=== PATIENT | male | born 1960 | race Caucasian/White ===

== ENCOUNTER 2021-04-20 10:42 | Emergency (ER) | payer OTHER, SELFPAY ==
[2021-04-20 10:48] VITALS: BP 158/97; PULSE 52; RESP 15; TEMP 36.5; O2SAT 99; BMI 25.1
--- NOTE | 2021-04-20 11:39 | CTR_ITS ---
PROCEDURE INFORMATION: Exam: CT Head Without Contrast Exam date and time: 04/20/2021 11:39 AM Age: 60 years old Clinical indication: Altered mental status/memory loss; Additional info: Memory issues for past year TECHNIQUE: Imaging protocol: Computed tomography of the head without contrast. Radiation optimization: All CT scans at this facility use at least one of these dose optimization techniques: automated exposure control; mA and/or kV adjustment per patient size (includes targeted exams where dose is matched to clinical indication); or iterative reconstruction. COMPARISON: No relevant prior studies available. RADIATION DOSE METRICS: Total DLP (mGy-cm): 979.82 FINDINGS: Brain: No intracranial hemorrhage, edema or other acute abnormalities are seen in the brain. There is generalized chronic atrophy with prominence of the ventricles and sulci. There is no mass effect or midline shift. Cerebral ventricles: Ventricles are prominent due to chronic atrophy. Paranasal sinuses: Visualized sinuses are unremarkable. No fluid levels. Mastoid air cells: Visualized mastoid air cells are well aerated. Bones/joints: Unremarkable. No acute fracture. Soft tissues: Unremarkable. CT/CT head wo con* [id number] IMPRESSION: 1. Generalized chronic atrophy. 2. No acute abnormality. Radiation Dose CTDIVOL = (mGy): DLP = 979.82 (mGy-cm)
--- NOTE | 2021-04-20 11:41 | W.ED.GENADLT ---
HPI - General Adult General: Chief complaint: General Medical Stated complaint: AMS Time Seen by Provider: 04/20/21 11:01 History of Present Illness: HPI narrative: Patient is a 60-year-old male comes to the ED with worsening memory issues. Patient's son is present in the room. Patient says over the past year he has been having worsening memory and foggy mind. He has been more forgetful over the past year. Son said that just this week his dad misplaced a chain saw somewhere on the property and he can remember where he put it. He denies any recent fall or head traumas. Denies any headache. He says he has no family history of any Alzheimer's, Parkinson's or other type of dementia. Denies any balance issues or dizziness. Associated symptoms: Reports confusion (memory issues); Deny chest pain, dyspnea, headache(s), nausea, rash, palpitations or vomiting Review of Systems Const: Denies: fever(s), chills or fatigue Eyes: Denies: change in vision or eye discomfort ENMT: Denies: throat pain, odynophagia, nasal discharge or nasal congestion Card: Denies: chest pain, palpitations, edema, swelling of feet/ankles, dyspnea on exertion or orthopnea Resp: Denies: dyspnea, productive cough or non-productive cough GI: Denies: abdominal pain, nausea, vomiting, diarrhea, constipation or hematochezia : Denies: flank pain, difficulty urinating, dysuria or hematuria Musc: Denies: neck pain, back pain or extremity swelling Skin/Breast: Denies: rash or new lesions Neuro: Reports: confusion (memory issues); Denies: headache(s), numbness in extremities or weakness in extremities Physical Exam Const: COMMON NORMALS: no acute distress and alert GENERAL APPEARANCE: cooperative and comfortable ORIENTATION/CONSCIOUSNESS: Yes oriented to person and Yes oriented to place HENMT: COMMON NORMALS: normocephalic HEAD & SCALP: normocephalic MOUTH: Normal oral and palatal mucosa present THROAT: posterior oropharynx normal and uvula midline Neck/C-Spine: COMMON NORMALS: supple GENERAL: Yes normal visual inspection Resp: COMMON NORMALS: normal respiratory effort, No retractions, No use of accessory muscles and clear to auscultation bilaterally AUSCULTATION: clear to auscultation bilaterally Cardio: COMMON NORMALS: regular rate, regular rhythm, S1 normal heart sound present, S2 normal heart sound present, No gallops present (Cardio), No clicks present (Cardio), No murmurs present (Cardio) and Peripheral pulses 2+ throughout RATE: regular rate RHYTHM: regular rhythm HEART SOUNDS: S1 normal heart sound present and S2 normal heart sound present PERIPHERAL PULSES: Peripheral pulses 2+ throughout GI: COMMON NORMALS: Normal to inspection, nondistended, normoactive bowel sounds present, Soft to palpation, non-tender and no masses PALPATION: Yes Soft to palpation : COMMON NORMALS: Yes no CVA tenderness BLADDER/KIDNEY EXAM: Yes no CVA tenderness Back/Pelvis: COMMON NORMALS: no CVA tenderness Extremity: COMMON NORMALS: normal to inspection Neuro: COMMON NORMALS: moves all extremities SENSORIUM/ORIENTATION: Yes alert, Yes oriented to person, Yes oriented to place and Yes Orientation impaired (Did not know year or day of week. Did know current president.) COORDINATION/BALANCE: [id number] test normal SPEECH: speech normal GAIT: Yes Normal gait present SENSORY EXAM: Yes extremities (intact) MOTOR EXAM: 5/5 motor strength present throughout and Tremors during motor activity present resting tremor bialteral upper extremity COORDINATION: [id number] test normal Skin: GENERAL SKIN EXAM: dry skin Course Vital Signs: Vital signs: Vital Signs Temperature 97.7 F 04/20/21 10:48 Pulse Rate 52 L 04/20/21 13:59 Respiratory Rate 15 04/20/21 10:48 Blood Pressure 127/84 04/20/21 13:59 Pulse Oximetry 98 04/20/21 13:59 MDM - General Adult MDM Narrative: Medical decision making narrative: Patient is a 60-year-old male comes to the ED with worsening memory issues. Patient's son is present. Over the past year patient has been showing worsening signs of memory issues. Patient does not have a PCP.has not seen a doctor in 10 years. Patient appears in no acute distress or pain has not had any recent head injuries or traumas. Patient is alert and oriented x2 but struggles a little bit with time questions such as day and year. Rest of neuro exam is normal. CT of head showed no acute findings but did show some generalized chronic atrophy. UA was unremarkable. Patient was diagnosed with cognitive changes and I placed an order with case management for patient to be referred to a PCP to establish care. Return to ED precautions given. Patient was discharged and told the disease case manager rn will be contacting the next several days set up an appointment with a PCP. Patient understood and agreed with plan. Lab Data: Attestation: I reviewed the patient's lab results. Labs: Lab Results 04/20/21 Range/Units 13:17 Urine Color Yellow (Yellow) Urine Appearance Clear (CLEAR) Urine pH 6.5 (5-7) Ur Specific Gravit y 1.020 (1.005-1.030) Urine Protein Neg (Negative) Urine Glucose (UA) Norm (Normal) Urine Ketones Negative (Negative) Urine Blood Neg (Negative) Urine Nitrate Negative (Negative) Urine Bilirubin Neg (Negative) Urine Urobilinogen Norm (Negative) mg/dL Ur Leukocyte Hailee ase Negative (Negative) Urine RBC 0-4 H (0-2) /hpf Urine WBC None (0-5) /hpf Ur Squamous Epith Cells 0-4 H (0-5) /hpf Amorphous Sediment Not Reportable Urine Bacteria None (NONE) /hpf Urine Mucus 1+ /hpf Imaging Data^: CT Head: Attestation: I personally reviewed and interpreted this imaging study as follows: Radiologist's impression: [address] [address] [address] Scan Report Signed Patient: Steven Bateman Unit #: [id number] : 1960 Age/Sex: 60 / M ADM Date: 04/20/21 Loc: ER Room/Bed: Attending Dr: Ordering Provider/Ordering MD: David Silva Date of Service: 04/20/21 Procedure(s): CT head wo con* [id number] Accession Number(s): [id number] Report Number: [id number] PROCEDURE INFORMATION: Exam: CT Head Without Contrast Exam date and time: 04/20/2021 11:39 AM Age: 60 years old Clinical indication: Altered mental status/memory loss; Additional info: Memory issues for past year TECHNIQUE: Imaging protocol: Computed tomography of the head without contrast. Radiation optimization: All CT scans at this facility use at least one of these dose optimization techniques: automated exposure control; mA and/or kV adjustment per patient size (includes targeted exams where dose is matched to clinical indication); or iterative reconstruction. COMPARISON: No relevant prior studies available. RADIATION DOSE METRICS: Total DLP (mGy-cm): 979.82 FINDINGS: Brain: No intracranial hemorrhage, edema or other acute abnormalities are seen in the brain. There is generalized chronic atrophy with prominence of the ventricles and sulci. There is no mass effect or midline shift. Cerebral ventricles: Ventricles are prominent due to chronic atrophy. Paranasal sinuses: Visualized sinuses are unremarkable. No fluid levels. Mastoid air cells: Visualized mastoid air cells are well aerated. Bones/joints: Unremarkable. No acute fracture. Soft tissues: Unremarkable. CT/CT head wo con* [id number] IMPRESSION: 1. Generalized chronic atrophy. 2. No acute abnormality. Radiation Dose CTDIVOL = (mGy): DLP = 979.82 (mGy-cm) Dictated By: Mateo Lloyd Signed By: Mateo Lloyd Signed Date/Time: 04/20/21 1250 DD/ 1249 Discharge Plan Discharge Patient Disposition: Home Clinical Impression: Cognitive changes Condition: Stable Prescriptions: No Action multivitamin 1 tab PO DAILY RF: 0 potassium 1 tab PO DAILY RF: 0 Discharge Orders: Discharge ED (Routine); Ordered 04/20/21 Ordered By: David Silva Referrals: Nina Gonzáles FNP [Primary Care Provider] - Discharge Diet: Regular Discharge Activity: Resume usual activity Activity Restrictions/Additional Instructions: Follow-up with medical provider as directed. Case management will be contacting you the next several days set up an appointment with a primary care physician. Continue taking all home medications as prescribed. Return to the ER or your medical provider if condition worsens. Please read and understand discharge instructions. Thank you for choosing [facility] for your healthcare needs today. Please realize this is an emergency room and that we are providing you with a medical screening exam and this may not be complete and all inclusive of all the testing and or work up that you may need to determine your ailment or severity of your illness. It is very important that you follow up as instructed or that you return to the Emergency Department should you have concerns or if your condition changes or worsens in any way. Coding Level of Care Code ED Academic Advisement Director for Keven Fwd Exam Comprehensive
[2021-04-20 13:35] LABS: Bilirubin Urine Neg (Negative); Blood Urine Neg (Negative); Glucose Urine UA Norm (Normal); Ketones Urine Negative (Negative); Leukocyte Esterase Urine Negative (Negative); Nitrate Urine Negative (Negative); Protein Urine Neg (Negative); Urine Appearance Clear (CLEAR); Urine Color Yellow (Yellow); Urobilinogen Urine Norm (Negative); pH Urine 6.5 (5-7)
[2021-04-20 13:36] LABS: Add Urine Culture? No; Mucus Urine 1+ /hpf; RBC Urine 0-4 /hpf (0-2); Squamous Epithelial Cell Urine 0-4 /hpf (0-5)
[2021-04-20 13:59] VITALS: BP 127/84; PULSE 52; O2SAT 98
--- NOTE | 2021-04-24 11:22 | DCPLANNER ---
Addendum entered by Keesha Whitaker 04/25/21 15:30: Patients son called supervisor case loading asking supervisor case loading to get patient established with a primary care physician. beverage manager called [facility], spoke with Ann, gave clinic patients information. A follow up appointment was scheduled for Thursday, May 17, 2021 at 9:[address] Nolen. beverage manager called patients son, and gave him the appointment information. Patients son asked supervisor case loading if supervisor case loading could refer patient to Dr. Wilkins office, supervisor case loading emailed patients information to the neurology clinic. Clinic will call patient with appointment information. Original Note: beverage manager had message to speak with patient about getting established with a primary care physician. beverage manager called phone number [phone], unable to speak with patient at this time, a voicemail was left for patient to return nurse case manager phone call.
--- NOTE | 2021-05-03 14:32 | DCPLANNER ---
Patient has a follow up appointment scheduled for , May 30, 2021 at 11:[address] Zarate. Clinic will call patient with appointment information.
--- NOTE | 2021-06-07 14:05 | DCPLANNER ---
Patient had a follow up appointment scheduled for 05.17.[address] Nolen at [facility] - patient did attend. Patient had a follow up appointment scheduled for 05.30.[address] Zarate - patient did attend appointment.
== END 2021-04-20 14:04 | disposition home or self-care (01) ==
PROVIDERS: Emergency Provider Physician Assistant; PCP Nurse Practitioner
DX: R41.89 Other symptoms and signs involving cognitive functions and awareness (principal)
CPT/HCPCS: 70450; 81001; 99283

== ENCOUNTER → 2021-05-17 11:36 | Outpatient (BNVA) | payer OTHER, SELFPAY | PROVIDERS: Visit Provider Family Medicine Adult Medicine | DX: Z00.00 Encounter for general adult medical examination without abnormal findings; R47.89 Other speech disturbances; H53.2 Diplopia; Z86.39 Personal history of other endocrine, nutritional and metabolic disease; E66.9 Obesity, unspecified | CPT/HCPCS: 80053; 83036; 84443; 85025; 85651; 86140; G0103 ==

== ENCOUNTER → 2021-05-30 10:27 | Outpatient (BNVA) | payer OTHER, SELFPAY | PROVIDERS: PCP Family Medicine Adult Medicine; Visit Provider Specialist | DX: G30.9 Alzheimer's disease, unspecified (principal); F02.80 Dementia in other diseases classified elsewhere, unspecified severity, without behavioral disturbance, psychotic disturbance, mood disturbance, and anxiety; R20.0 Anesthesia of skin; R20.2 Paresthesia of skin | CPT/HCPCS: 96116; 99205 ==

== ENCOUNTER 2021-06-27 16:17 | Outpatient (CLI) | payer OTHER, SELFPAY ==
[2021-06-27 17:36] LABS: Vitamin B12 419 pg/mL (232-1245)
== END 2021-06-27 16:18 | disposition home or self-care (01) ==
LOC: LAB 16:21
PROVIDERS: PCP Family Medicine Adult Medicine; Visit Provider Specialist
DX: R20.0 Anesthesia of skin (principal); R20.2 Paresthesia of skin; R41.3 Other amnesia
CPT/HCPCS: 36415; 82607

== ENCOUNTER → 2021-08-22 14:45 | Outpatient (BNVA) | payer OTHER, SELFPAY | PROVIDERS: PCP Family Medicine Adult Medicine; Visit Provider Specialist | DX: G30.9 Alzheimer's disease, unspecified (principal); F02.80 Dementia in other diseases classified elsewhere, unspecified severity, without behavioral disturbance, psychotic disturbance, mood disturbance, and anxiety | CPT/HCPCS: 96116; 99214 ==

== ENCOUNTER 2021-10-10 11:46 | Emergency (ER) | payer OTHER, SELFPAY ==
[2021-10-10 11:54] VITALS: BP 181/113; PULSE 60; RESP 16; TEMP 36.3; O2SAT 99; BMI 31.0
--- NOTE | 2021-10-10 11:55 | ED_ITS ---
HPI - Weakness General: Chief complaint: General Medical Stated complaint: WEAKNESS Time Seen by Provider: 10/10/21 11:55 History of Present Illness: HPI Narrative: Mr. Bateman is a 60-year-old gentleman with history of hypertension and diabetes and unfortunate history of rather severe Alzheimer's disease who presents to the emergency department due to unwell feeling. Upon arrival the patient is somewhat ill-appearing however the details of his presentation are unobtainable. Patient does not provide significant meaningful history likely secondary to mental status either baseline or exacerbated. Upon family's arrival supplemental information is that exact time of onset is unknown however this is not patient's baseline. Apparently neighbors found him this morning. Review of Systems General: Reports: ROS unobtainable due to mental status PFSH ED PFSH: Medical History Confusion and disorientation Elevated blood pressure, situational Episode of change in speech History of diabetes mellitus Monocular diplopia of both eyes Obesity (BMI 30.0-34.9) Periodic health assessment, general screening, adult Surgical History History of tonsillectomy and adenoidectomy Hx of hernia repair Hx of laparoscopic gastric banding Family History Mother Diabetes Other Hypertension Social History Alcohol intake: current Alcohol intake frequency: holidays/special occasions only Marital status: Number of children: 3 Number of grandchildren: 4 Current occupational status: employed History of recent travel: No Physical Exam Narrative: EXAM NARRATIVE: GENERAL/CONSTITUTIONAL -ill-appearing. Eyes - PERRL, no conjunctival injection ENMT - Atraumatic external nose and ears. Moist mucous membranes NECK - supple. trachea midline CARDIOVASCULAR - regular rate and rhythm. RESPIRATORY -clear to auscultation bilaterally. ABDOMEN/GI - Nontender/Nondistended. MSK - Extremities without obvious deformity or tenderness to palpation SKIN - Warm, Dry NEURO - alert but disoriented. Patient has challenges performing tasks associated with detailed neurologic exam. There is no obvious significant asymmetry or abnormal findings however exam is very limited. Course ED course: - Patient was seen and evaluated by me at bedside - Patient placed on cardiac monitors, IV access obtained - Initial evaluation notable for exam as above -Fluids ordered - Labs notable for normal hematologic panel. Metabolic panel without acute electrolyte derangement, mild evidence of dehydration. Urinalysis not concerning for urinary tract infection. Toxic ingestion labs negative. - Imaging notable for negative head CT and chest x-ray. - Upon serial reexamination after treatment the patient was markedly improved. He was completely alert and oriented. He provides good history regarding this morning. He reports that he just started to feel generally unwell and weak all over. There is no focality with this. He feels improved at this time. - Discussed with neurology, no additional imaging needed at this time - Based on patient history, evaluation, labs, and imaging as interpreted the most likely cause of the patient's condition is unclear alteration in mental status which has subsequently resolved - The results of ED evaluation were discussed with the patient including prescriptions and/or symptomatic cares (if applicable) including appropriate and responsible use, followup plan, and return precautions. The patient verbalized understanding and felt safe for discharge. - Patient discharged in satisfactory condition. Vital Signs: Vital signs: Vital Signs Temperature 97.4 F L 10/10/21 11:54 Pulse Rate 54 L 10/10/21 15:30 Respiratory Rate 19 H 10/10/21 15:30 Blood Pressure 141/82 10/10/21 15:30 Pulse Oximetry 98 10/10/21 15:30 MDM - Weakness Medical Records: Attestation: I reviewed the patient's medical records. Lab Data: Attestation: I reviewed the patient's lab results. Labs: Lab Results 10/10/21 10/10/21 10/10/21 11:51 11:51 11:51 WBC 6.6 10^3/uL 10^3/ uL (4.0-10.0) RBC 5.14 10^6/uL 10^6 /uL (4.1-5.3) Hgb 16.0 g/dL g/dL (11.7-16.6) Hct 47.3 % % (42.0-52.0) MCV 92.0 fl fl (80-94) MCH 31.1 pg pg (28.0-34.0) MCHC 33.8 g/dL g/dL (30.0-36.0) RDW 13.2 % % (12.1-15.1) Plt Count 207 10^3/cmm 10^3 /cmm (130-400) MPV 9.6 fL fL (7.4-10.4) Neut % (Auto) 76.9 % % Lymph % (Auto) 15.0 % % [place] % (Auto) 6.6 % % Eos % (Auto) 0.5 % % Baso % (Auto) 0.5 % % Neut # (Auto) 5.05 10^3/uL 10^3 /uL (1.8-7.7) Lymph # (Auto) 1.0 10^3/uL 10^3/ uL (0.8-4.8) [place] # (Auto) 0.4 10^3/uL 10^3/ uL (0.2-0.9) Eos # (Auto) 0.0 10^3/uL 10^3/ uL (0.0-0.8) Baso # (Auto) 0.0 10^3/uL 10^3/ uL (0.0-0.1) Nucleated RBC % (a uto) 0 % % Nucleated RBCs # 0.0 /100WBC /100W BC Sodium 138 mmol/L mmol/L (136-145) Potassium 4.1 mmol/L mmol/L (3.5-5.1) Chloride 102 mmol/L mmol/L (98-107) Carbon Dioxide 21 mmol/L L mmol/ L (22-29) Anion Gap 19.1 H (5-19) BUN 19 mg/dL mg/dL (8-23) Creatinine 0.9 mg/dL mg/dL (0.7-1.2) GFR Calculation 86.1 mL/min L mL/ min (90-130) Glucose 121 mg/dL H mg/dL (65-115) POC Glucose Calculated Osmolal ity 290 mOsm/kg mOsm/ kg (285-295) Calcium 9.0 mg/dL mg/dL (8.5-10.5) Total Bilirubin 0.4 mg/dL mg/dL (0.15-1.2) AST 16 U/L U/L (0-40) ALT 17 U/L U/L (0-41) Alkaline Phosphata se 136 IU/L H IU/L (40-130) Troponin T Baselin e 6 ng/L ng/L (0-15) Troponin T 120 Min [place] Delta Troponin T Total Protein 6.9 g/dL g/dL (6.6-8.7) Albumin 4.4 g/dL g/dL (3.5-5.2) Globulin 2.5 g/dL g/dL (1.3-4.6) TSH 1.19 uIU/mL uIU/m L (0.27-4.20) Urine Color Urine Appearance Urine pH Ur Specific Gravit y Urine Protein Urine Glucose (UA) Urine Ketones Urine Blood Urine Nitrate Urine Bilirubin Urine Urobilinogen Ur Leukocyte Hailee ase Salicylates < 0.3 mg/dL L mg/ dL (3-10) Urine Opiates Scre en Acetaminophen < 5.0 ug/mL L ug/ mL (10-30) Ur Barbiturates Sc reen Ur Phencyclidine S crn Ur Amphetamines Sc reen U Benzodiazepines Scrn Urine Cocaine Scre en U Marijuana (THC) Screen Ethyl Alcohol < 10 mg/dL mg/dL (0-10) 10/10/21 10/10/21 10/10/21 12:00 12:46 12:46 WBC RBC Hgb Hct MCV MCH MCHC RDW Plt Count MPV Neut % (Auto) Lymph % (Auto) [place] % (Auto) Eos % (Auto) Baso % (Auto) Neut # (Auto) Lymph # (Auto) [place] # (Auto) Eos # (Auto) Baso # (Auto) Nucleated RBC % (a uto) Nucleated RBCs # Sodium Potassium Chloride Carbon Dioxide Anion Gap BUN Creatinine GFR Calculation Glucose POC Glucose 113 mg/dL H mg/dL (70-110) Calculated Osmolal ity Calcium Total Bilirubin AST ALT Alkaline Phosphata se Troponin T Baselin e Troponin T 120 Min [place] Troponin T Total Protein Albumin Globulin TSH Urine Color Yellow (Yellow) Urine Appearance Clear (CLEAR) Urine pH 5 (5-7) Ur Specific Gravit y 1.020 (1.005-1.030) Urine Protein Neg (Negative) Urine Glucose (UA) Norm (Normal) Urine Ketones 2+ H (Negative) Urine Blood Neg (Negative) Urine Nitrate Negative (Negative) Urine Bilirubin Neg (Negative) Urine Urobilinogen Norm mg/dL mg/dL (Negative) Ur Leukocyte Hailee ase Negative (Negative) Salicylates Urine Opiates Scre en Negative ng/mL ng /mL (Negative) Acetaminophen Ur Barbiturates Sc reen Negative ng/mL ng /mL (Negative) Ur Phencyclidine S crn Negative ng/mL ng /mL (Negative) Ur Amphetamines Sc reen Negative ng/mL ng /mL (Negative) U Benzodiazepines Scrn Negative ng/mL ng /mL (Negative) Urine Cocaine Scre en Negative ng/mL ng /mL (Negative) U Marijuana (THC) Screen Negative ng/mL ng /mL (Negative) Ethyl Alcohol 10/10/21 13:56 WBC RBC Hgb Hct MCV MCH MCHC RDW Plt Count MPV Neut % (Auto) Lymph % (Auto) [place] % (Auto) Eos % (Auto) Baso % (Auto) Neut # (Auto) Lymph # (Auto) [place] # (Auto) Eos # (Auto) Baso # (Auto) Nucleated RBC % (a uto) Nucleated RBCs # Sodium Potassium Chloride Carbon Dioxide Anion Gap BUN Creatinine GFR Calculation Glucose POC Glucose Calculated Osmolal ity Calcium Total Bilirubin AST ALT Alkaline Phosphata se Troponin T Baselin e Troponin T 120 Min [place] 6.52 ng/L ng/L (0-15) Delta Troponin T 0.52 ABS# ABS# (0-10) Total Protein Albumin Globulin TSH Urine Color Urine Appearance Urine pH Ur Specific Gravit y Urine Protein Urine Glucose (UA) Urine Ketones Urine Blood Urine Nitrate Urine Bilirubin Urine Urobilinogen Ur Leukocyte Hailee ase Salicylates Urine Opiates Scre en Acetaminophen Ur Barbiturates Sc reen Ur Phencyclidine S crn Ur Amphetamines Sc reen U Benzodiazepines Scrn Urine Cocaine Scre en U Marijuana (THC) Screen Ethyl Alcohol EKG Data^: EKG 1: Attestation: I personally reviewed and interpreted this EKG as follows: EKG interpretation date: 10/10/21 EKG interpretation time: 12:44 Interpretation: Twelve-lead EKG shows an irregular rhythm at a rate of 61. WI interval 216, QRS duration 110, QTc 416. Borderline axis. Interpretation: Sinus rhythm. First-degree AV block. PACs. EKG 2: Attestation: I personally reviewed and interpreted this EKG as follows: EKG interpretation date: 10/10/21 EKG interpretation time: 14:22 Interpretation: Twelve-lead EKG shows a irregular rhythm at a rate of 70. WI interval 198, QRS duration 108, QTc 405. Borderline axis deviation. Interpretation: Sinus rhythm. Discharge Plan Discharge Patient Disposition: Home Clinical Impression: Episode of transient neurologic symptoms, Dehydration, Weakness, Malaise and fatigue Condition: Stable Prescriptions: New aspirin 325 mg tablet 325 mg PO DAILY Qty: 60 RF: 0 No Action acetaminophen 500 mg tablet 500 mg PO Q6H PRN (Reason: Pain) RF: 0 memantine [Namenda] 10 mg tablet 10 mg PO BID Qty: 60 RF: 5 galantamine 24 mg capsule,ext rel. pellets 24 hr 24 mg PO QAM Qty: 30 RF: 5 multivitamin 1 tab PO DAILY RF: 0 potassium 1 tab PO DAILY RF: 0 Discharge Orders: Discharge ED (Routine); Ordered 10/10/21 Ordered By: Lawrence David Referrals: Yosi Infante MD [Primary Care Provider] - Discharge Diet: Usual diet Discharge Activity: Resume usual activity Activity Restrictions/Additional Instructions: Thank you for visiting the emergency department. You were seen and evaluated for weakness associated with alteration of mental status. The exact cause of your symptoms is unclear as no significant laboratory or imaging abnormality was identified. You were most likely mildly dehydrated which was treated with fluids. After discussion with Dr. Zarate you will be referred for EEG. Please follow-up with her and your primary care provider. Return to the emergency department for recurrent symptoms, any new neurologic deficits, or anything else that you are concerned about and feel needs emergency department evaluation. Coding Level of Care Code ED Stocking Inspector for Keven Mcknight
--- NOTE | 2021-10-10 12:02 | XRR_ITS ---
PROCEDURE INFORMATION: Exam: XR Chest Exam date and time: 10/10/2021 12:02 PM Age: 60 years old Clinical indication: Patient HX: AMS, weakness, fatigue. Unable to obtain a full HX due to patient condition. TECHNIQUE: Imaging protocol: XR of the chest. Views: 1 view. COMPARISON: No relevant prior studies available. FINDINGS: Lungs: Unremarkable. No consolidation. Pleural spaces: Unremarkable. No pleural effusion. No pneumothorax. Heart/Mediastinum: Unremarkable. No cardiomegaly. Bones/joints: Mild levocurvature of the spine is present. No fracture identified. XR/XR chest 1V portable [id number] IMPRESSION: No evidence of active cardiopulmonary disease.
--- NOTE | 2021-10-10 12:02 | CT_ITS ---
WS: [id number] CT HEAD NONCONTRAST HISTORY: AMS TECHNIQUE: Contiguous axial imaging performed through the brain in 2.5 mm imaging. Bone and soft tiss ue windows. Sagittal and coronal reformats reviewed. All CT scans at [facility] use at least one of these dose optimization techniques: automated exposure control; mA and/or kV adjustment per pa tient size (includes targeted exams where dose is matched to clinical indication); or iterative recon struction. DLP: 1154.96 mGy.cm COMPARISON: 04/20/2021 No acute intracranial hemorrhage, midline shift or mass effect. Mild symmetric atrophy and chronic ischemic disease. Similar to the prior study. No acute infarct. Ventricles: Normal size with no hydrocephalus. Paranasal sinuses: As visualized are clear. Mastoid air cells: Well pneumatized. Calvarium and scalp: Skull is intact with no soft tissue edema or swelling. CT/CT head wo con* [id number] IMPRESSION: 1. No acute intracranial hemorrhage or edema. 2. Mild atrophy and chronic ischemic disease. No progression since 04/20/2021.
[2021-10-10 12:06] LABS: Glucose Point of Care 113 mg/dL (70-110)
--- NOTE | 2021-10-10 12:09 | ECG_ITS ---
[facility] Test Date: 2021-10-10 Pat Name: Steven Bateman Department: Room: Gender: Male [employer]: : 1960 Requested By: Lawrence David Order Number: [id number] Charles MD: Oliver Lopez M.D. Measurements Intervals [place] Rate: 61 P: 99 AR: 216 QRS: -17 QRSD: 110 T: 43 QT: 412 QTc: 418 Interpretive Statements SINUS RHYTHM WITH FIRST DEGREE AV BLOCK WITH FREQUENT SUPRAVENTRICULAR PREMATURE COMPLEXES MINIMAL VOLTAGE CRITERIA FOR LVH, CONSIDER NORMAL VARIANT [MEETS CRITERIA IN ONE OF: R(aVL), S(V1), R(V5), R(V5/V6)+S(V1)] POSSIBLE LATERAL MYOCARDIAL INFARCTION , PROBABLY OLD [30 ms Q WAVE IN I/aVL/V5/V6] INTERPRETATION BASED ON A DEFAULT AGE OF 40 YEARS No previous ECG available for comparison Electronically Signed On 10-10-2021 20:38:13 EXECUTIVE VICE PRESIDENT AND CHIEF OPERATING OFFICER by Oliver Lopez M.D. [id number]
[2021-10-10 12:27] LABS: Basophils % 0.5 %; Eosinophils % 0.5 %; Hematocrit 47.3 % (42.0-52.0); Mean Corpuscular HGB Conc 33.8 g/dL (30.0-36.0); Mean Corpuscular Hemoglobin 31.1 pg (28.0-34.0); Mean Platelet Volume 9.6 fL (7.4-10.4); Monocytes # 0.4 10^3/uL (0.2-0.9); Monocytes % 6.6 %; Neutrophils # 5.05 10^3/uL (1.8-7.7); Neutrophils % 76.9 %; Nucleated Red Blood Cells % 0 %; Platelet Count 207 10^3/cmm (130-400); Red Blood Count 5.14 10^6/uL (4.1-5.3); Red Cell Distribution Width 13.2 % (12.1-15.1); White Blood Count 6.6 10^3/uL (4.0-10.0)
[2021-10-10 12:35] VITALS: BP 168/104; PULSE 62; RESP 19; O2SAT 100
--- NOTE | 2021-10-10 12:47 | PC.NURSE ---
PT TO CT VIA STRETCHER AND [employer]. PT IS IN NAD.
[2021-10-10 12:48] LABS: Troponin(5th) Baseline 6 ng/L (0-15)
[2021-10-10 12:57] LABS: Alanine Aminotransferase 17 U/L (0-41); Albumin Level 4.4 g/dL (3.5-5.2); Alkaline Phosphatase 136 IU/L (40-130); Anion Gap 19.1 (5-19); Aspartate Amino Transferase 16 U/L (0-40); Blood Urea Nitrogen 19 mg/dL (8-23); Carbon Dioxide 21 mmol/L (22-29); Chloride 102 mmol/L (98-107); Globulin 2.5 g/dL (1.3-4.6); Glomerular Filtration Rate 86.1 mL/min (90-130); Glucose 121 mg/dL (65-115); Osmolality Calculated 290 mOsm/kg (285-295); Potassium 4.1 mmol/L (3.5-5.1); Sodium 138 mmol/L (136-145); Thyroid Stimulating Hormone 1.19 uIU/mL (0.27-4.20); Total Bilirubin 0.4 mg/dL (0.15-1.2); Total Protein 6.9 g/dL (6.6-8.7)
[2021-10-10 12:58] LABS: Add Urine Microscopic? NO; Charge for UA Resulting for Rev
[2021-10-10 12:59] LABS: Acetaminophen < 5.0 ug/mL (10-30); Salicylate < 0.3 mg/dL (3-10)
[2021-10-10 13:00] LABS: Alcohol Level < 10 mg/dL (0-10)
[2021-10-10 13:01] LABS: Bilirubin Urine Neg (Negative); Blood Urine Neg (Negative); Glucose Urine UA Norm (Normal); Ketones Urine 2+ (Negative); Leukocyte Esterase Urine Negative (Negative); Nitrate Urine Negative (Negative); Protein Urine Neg (Negative); Urine Appearance Clear (CLEAR); Urine Color Yellow (Yellow); Urobilinogen Urine Norm (Negative); pH Urine 5 (5-7)
[2021-10-10 13:07] LABS: Amphetamines Screen Urine Negative (Negative); Barbiturates Screen Urine Negative (Negative); Benzodiazepines Screen Urine Negative (Negative); Cocaine Screen Urine Negative (Negative); Opiate Screen Urine Negative (Negative); PCP Screen Urine Negative (Negative); THC Screen Urine Negative (Negative)
[2021-10-10 13:33] VITALS: BP 139/89; PULSE 64; RESP 15; O2SAT 97
[2021-10-10] MEDS: sodium chloride 0.9% 1,000 ML 999 ML IV (14:08)
--- NOTE | 2021-10-10 14:09 | ECG_ITS ---
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 [id number] f
[2021-10-10 14:47] LABS: Troponin 5 2HR 6.52 ng/L (0-15); Troponin 5 2HR Delta 0.52 ABS# (0-10)
[2021-10-10 15:30] VITALS: BP 141/82; PULSE 54; RESP 19; O2SAT 98
--- NOTE | 2021-10-11 05:07 | DCPLANNER ---
restaurant hospitality manager had message to schedule an outpatient EEG for patient. restaurant hospitality manager faxed signed order to centralized scheduling, who will call patient with appointment information.
--- NOTE | 2021-10-31 07:12 | DCPLANNER ---
Addendum entered by Keesha Whitaker 11/21/21 16:27: Patient had an out patient EEG scheduled for 11.20.21 - patient did attend appointment. Original Note: Patient has an outpatient EEG scheduled for Saturday, November 20, 2021 at 1:00, centralized scheduling will call patient with appointment information.
== END 2021-10-10 16:06 | disposition home or self-care (01) ==
PROVIDERS: Emergency Provider Emergency Medicine; PCP Family Medicine Adult Medicine
DX: R53.1 Weakness (principal); R53.81 Other malaise; R53.83 Other fatigue; E86.0 Dehydration; R29.818 Other symptoms and signs involving the nervous system; E11.9 Type 2 diabetes mellitus without complications
CPT/HCPCS: 36416; 70450; 71045; 80053; 80306; 80307; 81003; 82962; 84443; 84484; 85025; 93005; 96360; 99284; J7030

== ENCOUNTER → 2023-12-16 13:20 | Outpatient (BNVA) | payer MEDICARE, SELFPAY | PROVIDERS: PCP Family Medicine Adult Medicine; Visit Provider Specialist | DX: G30.9 Alzheimer's disease, unspecified (principal); F02.80 Dementia in other diseases classified elsewhere, unspecified severity, without behavioral disturbance, psychotic disturbance, mood disturbance, and anxiety; R41.3 Other amnesia; F32.A Depression, unspecified | CPT/HCPCS: 99213 ==

== ENCOUNTER 2024-08-03 18:47 | Emergency (ER) | payer MEDICARE, SELFPAY ==
[2024-08-03 18:57] VITALS: BMI 22.1
--- NOTE | 2024-08-03 19:05 | XRR_ITS ---
PROCEDURE INFORMATION: Exam: XR Pelvis Exam date and time: 08/03/2024 7:29 PM Age: 63 years old Clinical indication: Injury or trauma; Fall; Other: Pain TECHNIQUE: Imaging protocol: Radiologic exam of the pelvis. Views: 1 or 2 view. COMPARISON: No relevant prior studies available. FINDINGS: Bones/joints: Unremarkable. No acute fracture. Soft tissues: Unremarkable. XR/XR pelvis 1-2V* [id number] IMPRESSION: No acute findings.
--- NOTE | 2024-08-03 19:05 | CTR_ITS ---
PROCEDURE INFORMATION: Exam: CT Head Without Contrast Exam date and time: 08/03/2024 7:20 PM Age: 63 years old Clinical indication: Injury or trauma; Fall; Other: Pain TECHNIQUE: Imaging protocol: Computed tomography of the head without contrast. Radiation optimization: All CT scans at this facility use at least one of these dose optimization techniques: automated exposure control; mA and/or kV adjustment per patient size (includes targeted exams where dose is matched to clinical indication); or iterative reconstruction. COMPARISON: CT head wo con* [id number] 10/10/2021 12:51 PM RADIATION DOSE METRICS: Total DLP (mGy-cm): 1068 FINDINGS: Brain: No evidence for acute intracranial hemorrhage, mass effect, or acute infarct by CT. Cumb-lh-bdxhgyry generalized cerebral atrophy. Mild presumed chronic small-vessel ischemic changes in the cerebral white matter. Cerebral ventricles: Mild enlargement of the lateral and 3rd ventricles compatible with atrophy slightly progressed from prior CT. Paranasal sinuses: Visualized sinuses are unremarkable. No fluid levels. Mastoid air cells: Visualized mastoid air cells are well aerated. Bones: No acute calvarial fracture allowing for some motion artifact. Soft tissues: Soft tissue swelling left parietal scalp. Underlying calvarium intact Other findings: Some motion artifact. CT/CT head wo con* [id number] IMPRESSION: No acute intracranial abnormality.
--- NOTE | 2024-08-03 19:05 | CTR_ITS ---
PROCEDURE INFORMATION: Exam: CT Cervical Spine Without Contrast Exam date and time: 08/03/2024 7:20 PM Age: 63 years old Clinical indication: Injury or trauma; Fall; Other: Pain TECHNIQUE: Imaging protocol: Computed tomography of the cervical spine without contrast. Radiation optimization: All CT scans at this facility use at least one of these dose optimization techniques: automated exposure control; mA and/or kV adjustment per patient size (includes targeted exams where dose is matched to clinical indication); or iterative reconstruction. COMPARISON: CT head wo con* [id number] 08/03/2024 7:20 PM RADIATION DOSE METRICS: Total DLP (mGy-cm): 913 FINDINGS: Bones: Vertebral body heights maintained in the cervical region. Mild compression deformity along the superior endplate of T2 of the upper thoracic spine without acute fracture lines most likely chronic. Straightened upper cervical lordosis. Slight degenerative appearing anterior subluxation of C2 on C3. No acute fracture or posttraumatic subluxation. Grossly no high-grade central spinal canal narrowing in the cervical region. Lungs: Lung apices are normal. Soft tissues: Small calcific stone in the left parotid gland. Calcific changes in both carotid bifurcations. CT/CT cervical spin wo con* [id number] IMPRESSION: 1. No acute fracture or posttraumatic subluxation. 2. Probable chronic mild compression deformity along the superior bony endplate of T2 of the upper thoracic spine. 3. Grossly no high-grade central spinal canal narrowing in the cervical region.
--- NOTE | 2024-08-03 19:05 | XRR_ITS ---
PROCEDURE INFORMATION: Exam: XR Left Hip Exam date and time: 08/03/2024 7:31 PM Age: 63 years old Clinical indication: Injury or trauma; Fall; Other: Pain TECHNIQUE: Imaging protocol: Radiologic exam of the left hip. Views: 2 or 3 views hip with pelvis when performed. COMPARISON: CR XR pelvis 1-2V* [id number] 08/03/2024 7:29 PM FINDINGS: Bones/joints: The exam is challenging due to positioning. Equivocal nondisplaced fracture of the left inferior pubic ramus. No hip acute fracture. Soft tissues: Unremarkable. XR/XR hip LT 2-3V wo/w pel* [id number] IMPRESSION: 1. No definite hip fracture or dislocation noted. 2. The exam is challenging due to positioning. Equivocal nondisplaced fracture of the left inferior pubic ramus. 3. If pain persists and/or patient cannot bear weight consider CT pelvis as indicated.
--- NOTE | 2024-08-03 19:05 | XRR_ITS ---
PROCEDURE INFORMATION: Exam: XR Left Elbow Exam date and time: 08/03/2024 7:35 PM Age: 63 years old Clinical indication: Injury or trauma; Fall; Other: Pain TECHNIQUE: Imaging protocol: Radiologic exam of the left elbow. Views: 3 or more views. COMPARISON: CR XR shoulder LT min 2V* [id number] 08/03/2024 7:32 PM FINDINGS: Bones/joints: No acute fracture or dislocation is noted. The skeletal structures seem age-appropriate. Soft tissues: Unremarkable. XR/XR elbow LT min 3V* [id number] IMPRESSION: No acute findings.
--- NOTE | 2024-08-03 19:05 | XRR_ITS ---
PROCEDURE INFORMATION: Exam: XR Left Shoulder Exam date and time: 08/03/2024 7:32 PM Age: 63 years old Clinical indication: Injury or trauma; Fall; Other: Pain TECHNIQUE: Imaging protocol: Radiologic exam of the left shoulder. Views: 2 or more views. COMPARISON: CT cervical spin wo con* [id number] 08/03/2024 7:20 PM FINDINGS: Bones/joints: Normal. Soft tissues: Normal. XR/XR shoulder LT min 2V* [id number] IMPRESSION: No acute findings.
--- NOTE | 2024-08-03 19:13 | W.ED.FALL ---
HPI - Fall General: Chief Complaint: Fall Stated Complaint: FALL Time Seen by Provider: 08/03/24 19:01 Source: family and EMS Mode of arrival: EMS Limitations: altered mental status History of Present Illness: 63-year-old male has a history of severe dementia and had a unwitnessed fall at home today does have a small hematoma on his head and complained of some shoulder and hip pain to family patient does have pretty severe dementia. History is difficult to get from him due to severe dementia. He is not complain of any severe pain currently. Related Data Home Medications Medication Instructions Recorded Confirmed multivitamin 1 tab PO DAILY 04/20/21 12/16/23 potassium 1 tab PO DAILY 04/20/21 12/16/23 acetaminophen 500 mg tablet 500 mg PO Q6H PRN Pain 05/17/21 12/16/23 Previous Rx's Medication Instructions Recorded aspirin 325 mg tablet 325 mg PO DAILY #60 tabs 10/10/21 citalopram 20 mg tablet See Rx Instructions .Route 12/16/23 .COMPLEX #90 tabs galantamine 12 mg tablet 12 mg PO BID #180 tabs 12/16/23 memantine 10 mg tablet See Rx Instructions .Route 12/16/23 .COMPLEX #180 tabs Allergies Allergy/AdvReac Type Severity Reaction Status Date / Time No Known Allergies Allergy Verified 08/03/24 19:02 Review of Systems General: Reports: ROS unobtainable due to mental status [facility] PFSH: Medical History Elevated blood pressure, situational Periodic health assessment, general screening, adult Confusion and disorientation Episode of change in speech Obesity (BMI 30.0-34.9) History of diabetes mellitus Monocular diplopia of both eyes Surgical History Hx of laparoscopic gastric banding Hx of hernia repair History of tonsillectomy and adenoidectomy Family History Mother Diabetes Other Hypertension Social History Smoking and tobacco/nicotine status: never used tobacco/nicotine Alcohol intake: current Alcohol intake frequency: holidays/special occasions only Substance/Drug Use: never Marital status: Number of children: 3 Number of grandchildren: 4 Current occupational status: employed Physical Exam Const: COMMON NORMALS: negative for patient oriented x3 HENMT: COMMON NORMALS: normocephalic HEAD & SCALP: normocephalic OTHER: Small frontal hematoma Eye: COMMON NORMALS: Equal, round and reactive pupils present and EOMs intact bilaterally PUPIL: Yes Equal, round and reactive pupils present Neck/C-Spine: COMMON NORMALS: full ROM and supple Chest: COMMONS NORMALS: normal inspection of the chest and normal palpation of entire chest wall Resp: COMMON NORMALS: normal respiratory effort, No retractions, No use of accessory muscles and clear to auscultation bilaterally AUSCULTATION: clear to auscultation bilaterally Cardio: COMMON NORMALS: regular rate, regular rhythm and No murmurs present (Cardio) RATE: regular rate RHYTHM: regular rhythm GI: COMMON NORMALS: Normal to inspection, nondistended, normoactive bowel sounds present, Soft to palpation, non-tender and no masses PALPATION: Yes Soft to palpation Extremity: NARRATIVE EXTREMITY EXAM: Some tenderness to left shoulder and hip no obvious deformities here Neuro: COMMON NORMALS: moves all extremities and no focal motor deficits; negative for patient oriented x3 Psych: COMMON NORMALS: Normal thought process present and cooperative THOUGHT PROCESS: Normal thought process present Skin: COMMON NORMALS: no rashes or lesions noted and no wounds GENERAL SKIN EXAM: no rashes or lesions noted MDM - Fall Medical Decision Making Patient presents after a fall close head injury he has been well-appearing here and he was able to fully range his left hip with no pain here no signs of fracture he does not ambulate normally no signs of fracture here stable for discharge back home. Medical Records I reviewed the patient's medical records. Lab Data Radiology Impressions Cervical Spine CT 08/03/24 19:05 IMPRESSION: 1. No acute fracture or posttraumatic subluxation. 2. Probable chronic mild compression deformity along the superior bony endplate of T2 of the upper thoracic spine. 3. Grossly no high-grade central spinal canal narrowing in the cervical region. Elbow X-Ray 08/03/24 19:05 IMPRESSION: No acute findings. Head CT 08/03/24 19:05 IMPRESSION: No acute intracranial abnormality. Hip/Pelvis X-Ray 08/03/24 19:05 IMPRESSION: 1. No definite hip fracture or dislocation noted. 2. The exam is challenging due to positioning. Equivocal nondisplaced fracture of the left inferior pubic ramus. 3. If pain persists and/or patient cannot bear weight consider CT pelvis as indicated. Pelvis X-Ray 08/03/24 19:05 IMPRESSION: No acute findings. Shoulder X-Ray 08/03/24 19:05 IMPRESSION: No acute findings. All radiology interpretation(s) finalized by discharge Discharge Plan Discharge Patient Disposition: Home Clinical Impression: Fall, Closed head injury, Contusion of arm, left Condition: Stable Prescriptions: No Action acetaminophen 500 mg tablet 500 mg PO Q6H PRN (Reason: Pain) citalopram 20 mg tablet See Rx Instructions .ROUTE .COMPLEX Qty: 90 3RF Dose Instruction: Take 1 tablet by mouth once daily Rx Instructions: Take 1 tablet by mouth once daily galantamine 12 mg tablet 12 mg PO BID Qty: 180 3RF Rx Instructions: administer with AM and PM meals 340B memantine 10 mg tablet See Rx Instructions .ROUTE .COMPLEX Qty: 180 3RF Dose Instruction: Take 1 tablet by mouth twice daily Rx Instructions: Take 1 tablet by mouth twice daily aspirin 325 mg tablet 325 mg PO DAILY Qty: 60 0RF multivitamin 1 tab PO DAILY potassium 1 tab PO DAILY Discharge Orders: Discharge ED (Routine); Ordered 08/03/24 Ordered By: Heri Orantes Referrals: Yosi Infante MD [Primary Care Provider] - Discharge Diet: Advance as tolerated Discharge Activity: Resume usual activity Patient Instructions: Head Injury (ED), Fall Prevention (ED), Hip Contusion (ED) Coding Level of Care Code ED Funeral Home Director for Keven Mcknight
[2024-08-03 22:12] VITALS: BP 127/89; PULSE 68; RESP 16; O2SAT 97
== END 2024-08-03 22:56 | disposition home or self-care (01) ==
PROVIDERS: Emergency Provider Emergency Medicine; PCP Family Medicine Adult Medicine
DX: S00.03XA Contusion of scalp, initial encounter (principal); S40.022A Contusion of left upper arm, initial encounter; W19.XXXA Unspecified fall, initial encounter; Y92.009 Unspecified place in unspecified non-institutional (private) residence as the place of occurrence of the external cause; Z79.82 Long term (current) use of aspirin; E11.9 Type 2 diabetes mellitus without complications; F03.C0 Unspecified dementia, severe, without behavioral disturbance, psychotic disturbance, mood disturbance, and anxiety
CPT/HCPCS: 70450; 72125; 72170; 73030; 73080; 73502; 99284